=== PATIENT | female | born 1960 | race Caucasian/White ===

== ENCOUNTER → 2018-01-04 | Outpatient (CLI) | payer OTHER | END | disposition home or self-care (01) | LOC: HKI 14:08 | DX: M46.46 Discitis, unspecified, lumbar region (principal) | CPT/HCPCS: 72100 ==

== ENCOUNTER → 2018-04-26 | Outpatient (CLI) | payer OTHER | END | disposition home or self-care (01) | LOC: HKI 14:50 | DX: S76.011A Strain of muscle, fascia and tendon of right hip, initial encounter (principal); X58.XXXA Exposure to other specified factors, initial encounter; Y93.A1 Activity, exercise machines primarily for cardiorespiratory conditioning; Y92.89 Other specified places as the place of occurrence of the external cause | CPT/HCPCS: 73502 ==

== ENCOUNTER → 2018-06-20 | Outpatient (CLI) | payer OTHER | END | disposition home or self-care (01) | LOC: HKI 09:43 | DX: M46.46 Discitis, unspecified, lumbar region (principal) | CPT/HCPCS: Z7500 ==

== ENCOUNTER 2018-12-30 12:56 | Day surgery (SDC) | payer OTHER ==
[2018-12-30] MEDS ORDERED: LIDOCAINE 2% (SDV) 5 ML INJ (14:43)
[2018-12-30] MEDS ORDERED: PROPOFOL 20 ML (14:43)
[2018-12-30] MEDS ORDERED: HYDROmorphONE 1 MG/5 ML IV SYRINGE IV (15:00)
[2018-12-30] MEDS ORDERED: ONDANSETRON 4 MG INJ IV (15:00)
== END 2018-12-30 17:05 | disposition home or self-care (01) ==
LOC: GIL 12:56
DX: K29.30 Chronic superficial gastritis without bleeding (principal); E78.5 Hyperlipidemia, unspecified; E03.9 Hypothyroidism, unspecified
CPT/HCPCS: 43239; 88305; 88312